=== PATIENT | male | born 1965 | race Caucasian/White ===

== ENCOUNTER 2023-11-22 07:43 | Inpatient (IN) | payer OTHER ==
[~2023-11-22] VITALS: Ht 172.7 cm; Wt 78.6 kg
[2023-11-22 07:50] VITALS: BP_SYST 148; PULSE 88; RESP 18; TEMP 97.5; O2SAT 97
[2023-11-22 08:07] LABS: BASOPHILS # (AUTO) 0.1 K/uL (0.0-0.2); EOSINOPHILS # (AUTO) 0.2 K/uL (0.0-0.4); EOSINOPHILS % (AUTO) 2.1 % (0.0-4.0); HEMATOCRIT 27.8 % (36-54); HEMOGLOBIN 9.6 g/dL (14.0-18.0); LYMPHOCYTES # (AUTO) 1.6 K/uL (1.0-5.5); LYMPHOCYTES % (AUTO) 17.8 % (20.5-51.5); MEAN CORPUSCULAR HEMOGLOBIN 30 pg (27-31); MEAN CORPUSCULAR HGB CONC 35 % (32-36); MEAN CORPUSCULAR VOLUME 85 fL (79.0-98.0); MONOCYTES # (AUTO) 0.7 K/uL (0.0-1.0); MONOCYTES % (AUTO) 8.3 % (1.7-9.3); NEUTROPHILS # (AUTO) 6.3 K/uL (1.8-7.7); NEUTROPHILS % (AUTO) 70.8 % (40.0-70.0); PLATELET COUNT (AUTO) 252 K/uL (130-430); RED BLOOD CELL COUNT(AUTO) 3.26 MIL/uL (4.2-6.2); RED CELL DISTRIBUTION WIDTH 12.5 % (9.0-15.0); WHITE BLOOD COUNT (AUTO) 8.9 K/uL (4.8-10.8)
[2023-11-22 08:46] LABS: ANION GAP 7 (5-15); CALCIUM 8.6 mg/dL (8.4-11.0); CARBON DIOXIDE 29 mmol/L (23-29); CHLORIDE 100 mmol/L (98-107); CREATININE 1.99 mg/dL (0.55-1.30); GFR AFRICAN AMERICAN 44 mL/min (>90); GLUCOSE 98 mg/dL (74-106); POTASSIUM 3.7 mmol/L (3.5-5.1); SODIUM SERUM 136 mmol/L (136-145); UREA NITROGEN, BLOOD 46 mg/dL (8-21)
[2023-11-22 08:52] LABS: GFR NON AFRICAN-AMERICAN 37 mL/min (>90)
[2023-11-22] MEDS: ASPIRIN 325 MG TABLET PO ONE (09:06)
[2023-11-22 09:27] LABS: PROTHROMBIN TIME 10.2 SECS (9.5-12.5)
[2023-11-22] MEDS: HEPARIN SODIUM,PORCINE 5,000 UNITS/ML VIAL IVP ONE (09:56)
[2023-11-22] MEDS: HEPARIN 25,000 UNITS/D5W 250ML 250 ML IV ONE (10:15)
[2023-11-22] MEDS ORDERED: HEPARIN SODIUM,PORCINE 2000 UNITS/0.4 ML BOLUS IVP PRN (11:00)
[2023-11-22] MEDS: HEPARIN 25,000 UNITS in 250 ML PREMIX IV PRN (11:30)
[2023-11-22] MEDS: METOPROLOL TARTRATE 25 MG TABLET PO ONE (11:33)
[2023-11-22] MEDS: *HEPARIN PER PHARMACY XX ONE (11:47)
[2023-11-22] MEDS ORDERED: INSULIN REGULAR, HUMAN 100 UNITS/ML, 3 ML VIAL (humuLIN R) SUBCUT PRN (12:00)
[2023-11-22] MEDS ORDERED: D5W 1,000 ML IV PRN (12:15)
[2023-11-22] MEDS ORDERED: GLUCOSE (DEXTROSE) ORAL GEL -Adults PO PRN (12:15)
[2023-11-22] MEDS ORDERED: DEXTROSE 50%-WATER 50 ML DISP.SYRIN IVP PRN (12:15)
[2023-11-22] MEDS: LACTULOSE 20 GM/30 ML UDC PO ONE (12:35)
[2023-11-22] MEDS: FUROSEMIDE 20 MG/2 ML VIAL IVP ONE (12:38)
[2023-11-22 13:06] VITALS: BP_SYST 140; PULSE 95; RESP 16; TEMP 97.3; O2SAT 97
[2023-11-22] MEDS ORDERED: FUROSEMIDE 20 MG/2 ML VIAL IVP ONE (13:15)
[2023-11-22] MEDS ORDERED: DEXTROSE 50% JECT 50 ML DISP.SYRIN IVP PRN (17:30)
[2023-11-22 17:40] VITALS: BP_SYST 144; PULSE 87
[2023-11-22] MEDS: CARVEDILOL 12.5 MG TABLET (COREG) PO ONE (17:43)
[2023-11-22 17:51] LABS: BILIRUBIN,URINE NEGATIVE (NEGATIVE); BLOOD, URINE 1+ (NEGATIVE); CLARITY/URINE CLEAR (CLEAR); COLOR,URINE YELLOW (YELLOW); GLUCOSE,URINE 3+ (NEGATIVE); KETONES,URINE TRACE (NEGATIVE); LEUKOCYTE ESTERASE ,URINE NEGATIVE (NEGATIVE); NITRITE, URINE NEGATIVE (NEGATIVE); PROTEIN URINE 2+ (NEGATIVE); UROBILINOGEN,URINE 0.2 (0.2-1.0)
[2023-11-22 18:08] LABS: BACTERIA,URINE RARE /HPF (None Seen); MUCUS,URINE None Seen /LPF (None Seen); RBC,URINE 0-3 /HPF (0-3); WBC,URINE 0-3 /HPF (0-3)
[2023-11-22] MEDS: FUROSEMIDE 20 MG/2 ML VIAL IVP SCH (21:23)
[2023-11-22] MEDS: CARVEDILOL 12.5 MG TABLET (COREG) PO SCH (21:24)
[2023-11-22] MEDS: INSULIN REGULAR, HUMAN 100 UNITS/ML, 3 ML VIAL (humuLIN R) SUBCUT PRN (22:07)
[2023-11-22 22:57] VITALS: PULSE 92; RESP 18
[2023-11-23] VITALS (7 sets, daily range): BP systolic 98–117; PULSE 60–87; RESP 17–21; TEMP 97–98.4; O2SAT 92–99
[2023-11-23] MEDS: HEPARIN SODIUM,PORCINE 3000 UNITS/0.6 ML BOLUS IVP PRN (00:17)
[2023-11-23 04:34] LABS: BASOPHILS # (AUTO) 0.1 K/uL (0.0-0.2); BASOPHILS % (AUTO) 1.2 % (0.0-2.0); EOSINOPHILS # (AUTO) 0.3 K/uL (0.0-0.4); EOSINOPHILS % (AUTO) 3.9 % (0.0-4.0); HEMATOCRIT 27.2 % (36-54); HEMOGLOBIN 9.3 g/dL (14.0-18.0); LYMPHOCYTES # (AUTO) 1.9 K/uL (1.0-5.5); LYMPHOCYTES % (AUTO) 21.8 % (20.5-51.5); MEAN CORPUSCULAR HEMOGLOBIN 29 pg (27-31); MEAN CORPUSCULAR HGB CONC 34 % (32-36); MEAN CORPUSCULAR VOLUME 86 fL (79.0-98.0); MONOCYTES # (AUTO) 0.7 K/uL (0.0-1.0); MONOCYTES % (AUTO) 8.3 % (1.7-9.3); NEUTROPHILS # (AUTO) 5.6 K/uL (1.8-7.7); NEUTROPHILS % (AUTO) 64.8 % (40.0-70.0); PLATELET COUNT (AUTO) 248 K/uL (130-430); RED BLOOD CELL COUNT(AUTO) 3.16 MIL/uL (4.2-6.2); RED CELL DISTRIBUTION WIDTH 12.3 % (9.0-15.0); WHITE BLOOD COUNT (AUTO) 8.6 K/uL (4.8-10.8)
[2023-11-23 05:06] LABS: ALBUMIN 2.2 g/dL (3.4-4.8); CREATININE 1.98 mg/dL (0.55-1.30); FREE T4 (FREE THYROXINE) 1.3 ng/dL (0.6-1.6); PHOSPHORUS 4.3 mg/dL (2.7-4.5); POTASSIUM 4.1 mmol/L (3.5-5.1); THYROID STIMULATING HORMONE 0.76 uIu/mL (0.34-4.82); TOTAL BILIRUBIN 0.2 mg/dL (0.0-1.0); TOTAL PROTEIN, SERUM 6.2 g/dL (6.4-8.3)
[2023-11-23 05:30] LABS: CREATINE KINASE, TOTAL 156 U/L (39-308)
[2023-11-23] MEDS: LOSARTAN POTASSIUM 25 MG TABLET PO SCH (09:40)
[2023-11-23] MEDS: ASPIRIN 81 MG TAB.CHEW PO SCH (09:41)
[2023-11-23] MEDS: ATORVASTATIN 20 MG TABLET PO SCH (09:41)
[2023-11-23] MEDS ORDERED: ACETAMINOPHEN 325 MG TABLET PO PRN (11:45)
[2023-11-23] MEDS: HYDROcodone/ACETAMIN 5-325 MG TAB (NORCO/ VICODIN) PO PRN (16:41)
[2023-11-23] MEDS: TEMAZEPAM 15 MG CAPSULE PO SCH (21:00)
[2023-11-23] MEDS: INSULIN GLARGINE 100 UNITS/ML, 10 ML VIAL SUBCUT SCH (21:58)
[2023-11-24 00:22] VITALS: BP_SYST 104; PULSE 68; RESP 16; TEMP 97.6; O2SAT 98
[2023-11-24 04:38] LABS: BASOPHILS # (AUTO) 0.1 K/uL (0.0-0.2); EOSINOPHILS # (AUTO) 0.4 K/uL (0.0-0.4); HEMATOCRIT 25.7 % (36-54); HEMOGLOBIN 8.7 g/dL (14.0-18.0); LYMPHOCYTES % (AUTO) 24.1 % (20.5-51.5); MEAN CORPUSCULAR HEMOGLOBIN 30 pg (27-31); MEAN CORPUSCULAR HGB CONC 34 % (32-36); MEAN CORPUSCULAR VOLUME 87 fL (79.0-98.0); MONOCYTES # (AUTO) 0.7 K/uL (0.0-1.0); MONOCYTES % (AUTO) 8.5 % (1.7-9.3); NEUTROPHILS # (AUTO) 5.2 K/uL (1.8-7.7); NEUTROPHILS % (AUTO) 61.4 % (40.0-70.0); PLATELET COUNT (AUTO) 233 K/uL (130-430); RED BLOOD CELL COUNT(AUTO) 2.94 MIL/uL (4.2-6.2); RED CELL DISTRIBUTION WIDTH 12.5 % (9.0-15.0); WHITE BLOOD COUNT (AUTO) 8.5 K/uL (4.8-10.8)
[2023-11-24 05:32] LABS: ALBUMIN 2.1 g/dL (3.4-4.8); CREATININE 1.99 mg/dL (0.55-1.30); POTASSIUM 3.9 mmol/L (3.5-5.1); TOTAL BILIRUBIN 0.2 mg/dL (0.0-1.0); TOTAL PROTEIN, SERUM 5.7 g/dL (6.4-8.3)
[2023-11-24 08:00] VITALS: BP_SYST 107; PULSE 71; RESP 20; TEMP 97.4; O2SAT 96
[2023-11-24] MEDS: FUROSEMIDE 40 MG TABLET PO SCH (09:07)
[2023-11-24 11:06] VITALS: BP_SYST 107; PULSE 78; RESP 18; TEMP 97.6; O2SAT 96
[2023-11-24 16:05] VITALS: BP_SYST 108; PULSE 78; RESP 18; TEMP 97.6; O2SAT 96
[2023-11-24] MEDS: EPOETIN ALFA-EPBX 3,000 UNITS/ML VIAL SUBCUT ONE (18:46)
[2023-11-24 20:00] VITALS: BP_SYST 101; PULSE 71; RESP 18; TEMP 97.8; O2SAT 95
[2023-11-25] VITALS: BP_SYST 98; PULSE 64; RESP 18; TEMP 97.4; O2SAT 98
[2023-11-25 04:58] LABS: BASOPHILS # (AUTO) 0.1 K/uL (0.0-0.2); EOSINOPHILS # (AUTO) 0.4 K/uL (0.0-0.4); EOSINOPHILS % (AUTO) 3.9 % (0.0-4.0); HEMATOCRIT 27.9 % (36-54); HEMOGLOBIN 9.4 g/dL (14.0-18.0); LYMPHOCYTES % (AUTO) 28.8 % (20.5-51.5); MEAN CORPUSCULAR HEMOGLOBIN 29 pg (27-31); MEAN CORPUSCULAR HGB CONC 34 % (32-36); MEAN CORPUSCULAR VOLUME 88 fL (79.0-98.0); MONOCYTES # (AUTO) 0.8 K/uL (0.0-1.0); MONOCYTES % (AUTO) 8.1 % (1.7-9.3); NEUTROPHILS % (AUTO) 58.2 % (40.0-70.0); PLATELET COUNT (AUTO) 289 K/uL (130-430); RED BLOOD CELL COUNT(AUTO) 3.19 MIL/uL (4.2-6.2); RED CELL DISTRIBUTION WIDTH 12.7 % (9.0-15.0); WHITE BLOOD COUNT (AUTO) 10.4 K/uL (4.8-10.8)
[2023-11-25 05:53] LABS: ALBUMIN 2.3 g/dL (3.4-4.8); CALCIUM 8.1 mg/dL (8.4-11.0); CREATININE 2.02 mg/dL (0.55-1.30); PHOSPHORUS 5.5 mg/dL (2.7-4.5); POTASSIUM 3.7 mmol/L (3.5-5.1); TOTAL BILIRUBIN 0.3 mg/dL (0.0-1.0)
[2023-11-25 08:37] VITALS: BP_SYST 129; PULSE 69; RESP 19; TEMP 96.4; O2SAT 95
[2023-11-25 09:00] VITALS: O2SAT 96
[2023-11-25] MEDS: NEPHROVITE, (FOLIC ACID/VITAMIN B COMP W-C 1 TAB) PO SCH (09:09)
[2023-11-25 10:56] LABS: TOTAL IRON BIND. CAPACITY 252 ug/dL (250-450)
[2023-11-25] MEDS ORDERED: COR12.5 PO (12:45)
[2023-11-25] MEDS ORDERED: LIP20 PO (12:45)
[2023-11-25] MEDS ORDERED: ASA81 PO (12:45)
[2023-11-25] MEDS ORDERED: LOSA-412 PO (12:45)
[2023-11-25] MEDS ORDERED: INSU100V9 SUBCUT (12:45)
[2023-11-25] MEDS ORDERED: GLIP5TAB23 PO (12:45)
[2023-11-25] MEDS ORDERED: FURO-149 PO (12:45)
[2023-11-25] MEDS ORDERED: NEPH PO (12:45)
[2023-11-25 13:06] VITALS: BP_SYST 121; PULSE 80; RESP 16; TEMP 98.7; O2SAT 98
[2023-11-25 14:22] VITALS: BP_SYST 121; PULSE 80; RESP 16; TEMP 98.7; O2SAT 95
[2023-11-26] MEDS ORDERED: EPOETIN ALFA-EPBX 3,000 UNITS/ML VIAL SUBCUT SCH (17:00)
== END 2023-11-25 15:30 | disposition home or self-care (01) | DRG 280 ==
LOC: SED 07:43 → STU 10:10
PROVIDERS: ADMIT Internal Medicine; ATTEND Internal Medicine
DX: I21.4 Non-ST elevation (NSTEMI) myocardial infarction (principal); I50.41 Acute combined systolic (congestive) and diastolic (congestive) heart failure; I13.0 Hypertensive heart and chronic kidney disease with heart failure and stage 1 through stage 4 chronic kidney disease, or unspecified chronic kidney disease; N18.4 Chronic kidney disease, stage 4 (severe); I42.9 Cardiomyopathy, unspecified; Z20.822 Contact with and (suspected) exposure to COVID-19; I24.89 Other forms of acute ischemic heart disease; E11.22 Type 2 diabetes mellitus with diabetic chronic kidney disease; E11.51 Type 2 diabetes mellitus with diabetic peripheral angiopathy without gangrene; I25.10 Atherosclerotic heart disease of native coronary artery without angina pectoris; D64.9 Anemia, unspecified; E11.40 Type 2 diabetes mellitus with diabetic neuropathy, unspecified; I25.2 Old myocardial infarction; Z79.4 Long term (current) use of insulin; Z87.891 Personal history of nicotine dependence; Z89.419 Acquired absence of unspecified great toe
CPT/HCPCS: 36415; 71045; 72100; 76705; 76770; 80048; 80053; 80061; 81000; 81001; 81015; 82550; 82948; 83037; 83540; 83550; 83690; 83735; 83880; 84100; 84439; 84443; 84484; 85025; 85610; 85730; 93005; 93306; 99291; G0378; J1644; J1815; J1940; Q5106

== ENCOUNTER 2023-11-27 11:19 | Inpatient (IN) | payer OTHER ==
[~2023-11-27] VITALS: Ht 172.7 cm; Wt 77.6 kg
[~2023-11-27 11:19] MED LIST: ASA81 PO; COR12.5 PO; FURO-149 PO; GLIP5TAB23 PO; INSU100V9 SUBCUT; LIP20 PO; LOSA-412 PO; NEPH PO
[2023-11-27 11:20] VITALS: BP_SYST 155; PULSE 88; RESP 22; TEMP 97; O2SAT 90
[2023-11-27] MEDS: NITROGLYCERIN 0.4 MG TAB.SUBL SL ONE (11:42)
[2023-11-27 11:59] LABS: BASOPHILS # (AUTO) 0.1 K/uL (0.0-0.2); EOSINOPHILS # (AUTO) 0.1 K/uL (0.0-0.4); HEMOGLOBIN 10.1 g/dL (14.0-18.0); LYMPHOCYTES # (AUTO) 1.4 K/uL (1.0-5.5); MEAN CORPUSCULAR HGB CONC 33 % (32-36); MONOCYTES # (AUTO) 0.6 K/uL (0.0-1.0)
[2023-11-27 12:01] LABS: BASOPHILS % (AUTO) 0.5 % (0.0-2.0); EOSINOPHILS % (AUTO) 1.1 % (0.0-4.0); HEMATOCRIT 30.7 % (36-54); LYMPHOCYTES % (AUTO) 13.9 % (20.5-51.5); MEAN CORPUSCULAR HEMOGLOBIN 30 pg (27-31); MEAN CORPUSCULAR VOLUME 90 fL (79.0-98.0); MONOCYTES % (AUTO) 6.1 % (1.7-9.3); NEUTROPHILS # (AUTO) 8.1 K/uL (1.8-7.7); NEUTROPHILS % (AUTO) 78.4 % (40.0-70.0); PLATELET COUNT (AUTO) 290 K/uL (130-430); RED CELL DISTRIBUTION WIDTH 12.7 % (9.0-15.0); WHITE BLOOD COUNT (AUTO) 10.3 K/uL (4.8-10.8)
[2023-11-27 12:21] LABS: PROTHROMBIN TIME 10.2 SECS (9.5-12.5)
[2023-11-27 12:26] LABS: ALANINE AMINOTRANSFERASE 24 U/L (12-78); ALBUMIN 2.9 g/dL (3.4-4.8); ANION GAP 9 (5-15); ASPARTATE AMINOTRANSFERASE 30 U/L (10-37); BILIRUBIN,DIRECT 0.1 mg/dL (0.0-0.3); CALCIUM 8.4 mg/dL (8.4-11.0); CARBON DIOXIDE 27 mmol/L (23-29); CHLORIDE 103 mmol/L (98-107); CREATINE KINASE, TOTAL 123 U/L (39-308); CREATININE 2.09 mg/dL (0.55-1.30); GFR AFRICAN AMERICAN 42 mL/min (>90); GFR NON AFRICAN-AMERICAN 35 mL/min (>90); GLUCOSE 358 mg/dL (74-106); POTASSIUM 5.4 mmol/L (3.5-5.1); SODIUM SERUM 139 mmol/L (136-145); TOTAL BILIRUBIN 0.4 mg/dL (0.0-1.0); TOTAL PROTEIN, SERUM 7.2 g/dL (6.4-8.3); UREA NITROGEN, BLOOD 57 mg/dL (8-21)
[2023-11-27] MEDS: SODIUM POLYSTYRENE SULFONATE 15 GM/60 ML UDBTL PO ONE (13:26)
[2023-11-27] MEDS: NS 500 ML IV ONE (13:26)
[2023-11-27] MEDS ORDERED: ATORVASTATIN 20 MG TABLET PO SCH (14:30)
[2023-11-27] MEDS ORDERED: FUROSEMIDE 20 MG/2 ML VIAL IVP ONE (14:45)
[2023-11-27] MEDS ORDERED: IPRATROPIUM/ALBUTEROL SULFATE 3 ML AMPUL.NEB (DUONEB) ONE (15:04)
[2023-11-27] MEDS: FUROSEMIDE 40 MG/4 ML VIAL IVP ONE (16:13)
[2023-11-27] MEDS: amLODIPine BESYLATE 5 MG TABLET PO ONE (16:13)
[2023-11-27] MEDS: LORazepam 1 MG TABLET PO ONE (16:14)
[2023-11-27] MEDS: ATORVASTATIN 20 MG TABLET PO SCH (18:44)
[2023-11-27] MEDS: ATORVASTATIN 20 MG TABLET PO ONE (18:46)
[2023-11-27] MEDS: DOCUSATE SODIUM 100 MG CAPSULE PO SCH (18:50)
[2023-11-27] MEDS: ASPIRIN 81 MG TAB.CHEW PO SCH (18:50)
[2023-11-27 20:56] LABS: BILIRUBIN,URINE NEGATIVE (NEGATIVE); BLOOD, URINE 1+ (NEGATIVE); CLARITY/URINE CLEAR (CLEAR); COLOR,URINE YELLOW (YELLOW); GLUCOSE,URINE 3+ (NEGATIVE); KETONES,URINE NEGATIVE (NEGATIVE); LEUKOCYTE ESTERASE ,URINE NEGATIVE (NEGATIVE); NITRITE, URINE NEGATIVE (NEGATIVE); PROTEIN URINE 2+ (NEGATIVE); UROBILINOGEN,URINE 0.2 (0.2-1.0)
[2023-11-27 21:03] VITALS: BP_SYST 130; PULSE 84; RESP 18; TEMP 97.6
[2023-11-27 21:05] LABS: RBC,URINE NONE SEEN /HPF (0-3)
[2023-11-27 21:06] LABS: BACTERIA,URINE None Seen /HPF (None Seen); MUCUS,URINE None Seen /LPF (None Seen); WBC,URINE 0-3 /HPF (0-3)
[2023-11-27] MEDS: POLYETHYLENE GLYCOL 3350, 17 GM/ POWD.PACK PO SCH (21:35)
[2023-11-27] MEDS: ZOLPIDEM TARTRATE 5 MG TABLET PO ONE (21:35)
[2023-11-27] MEDS: CARVEDILOL 12.5 MG TABLET (COREG) PO SCH (21:36)
[2023-11-27 21:40] VITALS: O2SAT 99
[2023-11-28 00:32] VITALS: BP_SYST 129; PULSE 80; RESP 20; TEMP 98.1
[2023-11-28] MEDS: INSULIN LISPRO SLIDING SCALE 100 UNITS/ML, 3 ML VIAL (humaLOG) SUBCUT PRN (06:08)
[2023-11-28 08:00] VITALS: BP_SYST 136; RESP 18; TEMP 97; O2SAT 100
[2023-11-28 08:09] LABS: CALCIUM 8.4 mg/dL (8.4-11.0); CREATININE 1.97 mg/dL (0.55-1.30); POTASSIUM 4.9 mmol/L (3.5-5.1)
[2023-11-28 08:16] LABS: BASOPHILS # (AUTO) 0.1 K/uL (0.0-0.2); EOSINOPHILS # (AUTO) 0.1 K/uL (0.0-0.4); HEMOGLOBIN 9.9 g/dL (14.0-18.0); LYMPHOCYTES # (AUTO) 1.2 K/uL (1.0-5.5)
[2023-11-28 08:20] LABS: BASOPHILS % (AUTO) 0.9 % (0.0-2.0); HEMATOCRIT 29.7 % (36-54); LYMPHOCYTES % (AUTO) 11.1 % (20.5-51.5); MEAN CORPUSCULAR HEMOGLOBIN 30 pg (27-31); MEAN CORPUSCULAR HGB CONC 33 % (32-36); MEAN CORPUSCULAR VOLUME 89 fL (79.0-98.0); MONOCYTES # (AUTO) 0.7 K/uL (0.0-1.0); MONOCYTES % (AUTO) 6.4 % (1.7-9.3); NEUTROPHILS # (AUTO) 8.6 K/uL (1.8-7.7); NEUTROPHILS % (AUTO) 80.6 % (40.0-70.0); PLATELET COUNT (AUTO) 290 K/uL (130-430); RED BLOOD CELL COUNT(AUTO) 3.33 MIL/uL (4.2-6.2); RED CELL DISTRIBUTION WIDTH 12.8 % (9.0-15.0); WHITE BLOOD COUNT (AUTO) 10.6 K/uL (4.8-10.8)
[2023-11-28] MEDS: NEPHROVITE, (FOLIC ACID/VITAMIN B COMP W-C 1 TAB) PO SCH (08:38)
[2023-11-28] MEDS: FUROSEMIDE 20 MG TABLET PO ONE (10:26)
[2023-11-28 12:00] VITALS: BP_SYST 135; PULSE 82; RESP 19; TEMP 97.2; O2SAT 96
[2023-11-28 16:00] VITALS: BP_SYST 138; PULSE 84; RESP 18; TEMP 97.1; O2SAT 95
[2023-11-28 20:02] VITALS: BP_SYST 138; PULSE 81; RESP 20; TEMP 97; O2SAT 98
[2023-11-28] MEDS: FUROSEMIDE 20 MG TABLET PO SCH (21:29)
[2023-11-28] MEDS: INSULIN GLARGINE 100 UNITS/ML, 10 ML VIAL SUBCUT SCH (21:32)
[2023-11-28] MEDS: POLYETHYLENE GLYCOL 3350, 17 GM/ POWD.PACK PO SCH (21:34)
[2023-11-29] VITALS (10 sets, daily range): BP systolic 108–148; PULSE 69–120; RESP 18–20; TEMP 97.3–98.1; O2SAT 69–100
[2023-11-29 07:09] LABS: BASOPHILS # (AUTO) 0.1 K/uL (0.0-0.2); EOSINOPHILS # (AUTO) 0.1 K/uL (0.0-0.4); EOSINOPHILS % (AUTO) 1.4 % (0.0-4.0); HEMATOCRIT 28.2 % (36-54); HEMOGLOBIN 9.4 g/dL (14.0-18.0); LYMPHOCYTES # (AUTO) 1.5 K/uL (1.0-5.5); MEAN CORPUSCULAR HEMOGLOBIN 30 pg (27-31); MEAN CORPUSCULAR HGB CONC 33 % (32-36); MEAN CORPUSCULAR VOLUME 90 fL (79.0-98.0); MONOCYTES # (AUTO) 0.6 K/uL (0.0-1.0); MONOCYTES % (AUTO) 5.5 % (1.7-9.3); NEUTROPHILS # (AUTO) 8.1 K/uL (1.8-7.7); NEUTROPHILS % (AUTO) 78.1 % (40.0-70.0); PLATELET COUNT (AUTO) 282 K/uL (130-430); RED BLOOD CELL COUNT(AUTO) 3.15 MIL/uL (4.2-6.2); RED CELL DISTRIBUTION WIDTH 12.8 % (9.0-15.0); WHITE BLOOD COUNT (AUTO) 10.4 K/uL (4.8-10.8)
[2023-11-29 07:53] LABS: ALBUMIN 2.6 g/dL (3.4-4.8); CALCIUM 8.2 mg/dL (8.4-11.0); CREATININE 1.99 mg/dL (0.55-1.30); POTASSIUM 5.2 mmol/L (3.5-5.1); TOTAL BILIRUBIN 0.4 mg/dL (0.0-1.0); TOTAL PROTEIN, SERUM 6.5 g/dL (6.4-8.3)
[2023-11-29] MEDS: FUROSEMIDE 20 MG/2 ML VIAL IVP SCH (09:21)
[2023-11-29] MEDS: cefTRIAXone 1 GM in D5W 50 ML IV SCH (09:27)
[2023-11-29] MEDS: IPRATROPIUM/ALBUTEROL SULFATE 3 ML AMPUL.NEB (DUONEB) INH SCH (11:31)
[2023-11-29] MEDS: SODIUM ZIRCONIUM CYCLOSILICATE 10 GM POWD.PACK PO ONE (14:03)
[2023-11-29] MEDS: SODIUM PHOSPHATE,MONO-DIBASIC 133 ML ENEMA RC ONE (16:19)
[2023-11-29] MEDS: POLYETHYLENE GLYCOL 3350, 17 GM/ POWD.PACK PO ONE (16:19)
[2023-11-29] MEDS: BUDESONIDE 0.5 MG/2 ML AMPUL.NEB INH SCH (20:26)
[2023-11-30] VITALS (10 sets, daily range): BP systolic 112–138; PULSE 67–81; RESP 16–18; TEMP 97–98.8; O2SAT 93–99
[2023-11-30 09:09] LABS: BASOPHILS # (AUTO) 0.1 K/uL (0.0-0.2); HEMOGLOBIN 10.3 g/dL (14.0-18.0); MEAN CORPUSCULAR VOLUME 89 fL (79.0-98.0)
[2023-11-30 09:13] LABS: BASOPHILS % (AUTO) 0.9 % (0.0-2.0); EOSINOPHILS # (AUTO) 0.1 K/uL (0.0-0.4); EOSINOPHILS % (AUTO) 1.5 % (0.0-4.0); HEMATOCRIT 30.7 % (36-54); LYMPHOCYTES # (AUTO) 1.9 K/uL (1.0-5.5); LYMPHOCYTES % (AUTO) 19.7 % (20.5-51.5); MEAN CORPUSCULAR HEMOGLOBIN 30 pg (27-31); MEAN CORPUSCULAR HGB CONC 34 % (32-36); MONOCYTES # (AUTO) 0.6 K/uL (0.0-1.0); MONOCYTES % (AUTO) 6.4 % (1.7-9.3); NEUTROPHILS # (AUTO) 6.9 K/uL (1.8-7.7); NEUTROPHILS % (AUTO) 71.5 % (40.0-70.0); PLATELET COUNT (AUTO) 307 K/uL (130-430); RED BLOOD CELL COUNT(AUTO) 3.46 MIL/uL (4.2-6.2); RED CELL DISTRIBUTION WIDTH 13.2 % (9.0-15.0); WHITE BLOOD COUNT (AUTO) 9.7 K/uL (4.8-10.8)
[2023-11-30 09:28] LABS: ALBUMIN 2.6 g/dL (3.4-4.8); CALCIUM 8.4 mg/dL (8.4-11.0); POTASSIUM 4.3 mmol/L (3.5-5.1); TOTAL BILIRUBIN 0.4 mg/dL (0.0-1.0); TOTAL PROTEIN, SERUM 6.6 g/dL (6.4-8.3)
[2023-11-30] MEDS: INSULIN LISPRO SLIDING SCALE 100 UNITS/ML, 3 ML VIAL (humaLOG) SUBCUT PRN (16:42)
[2023-11-30] MEDS: INSULIN GLARGINE 100 UNITS/ML, 10 ML VIAL SUBCUT SCH (22:06)
[2023-12-01] VITALS (8 sets, daily range): BP systolic 112–130; PULSE 67–79; RESP 16–18; TEMP 96.7–98.2; O2SAT 95–98
[2023-12-01] MEDS: SODIUM PHOSPHATE,MONO-DIBASIC 133 ML ENEMA RC ONE (00:23)
[2023-12-01] MEDS ORDERED: BENZONATATE 100 MG CAPSULE (TESSALON) PO PRN (07:45)
[2023-12-01 11:00] LABS: BASOPHILS # (AUTO) 0.1 K/uL (0.0-0.2); BASOPHILS % (AUTO) 1.2 % (0.0-2.0); EOSINOPHILS # (AUTO) 0.2 K/uL (0.0-0.4); EOSINOPHILS % (AUTO) 2.2 % (0.0-4.0); HEMATOCRIT 29.8 % (36-54); LYMPHOCYTES # (AUTO) 1.4 K/uL (1.0-5.5); LYMPHOCYTES % (AUTO) 15.9 % (20.5-51.5); MEAN CORPUSCULAR HEMOGLOBIN 30 pg (27-31); MEAN CORPUSCULAR HGB CONC 33 % (32-36); MEAN CORPUSCULAR VOLUME 88 fL (79.0-98.0); MONOCYTES # (AUTO) 0.6 K/uL (0.0-1.0); NEUTROPHILS # (AUTO) 6.3 K/uL (1.8-7.7); NEUTROPHILS % (AUTO) 73.7 % (40.0-70.0); PLATELET COUNT (AUTO) 288 K/uL (130-430); RED BLOOD CELL COUNT(AUTO) 3.38 MIL/uL (4.2-6.2); RED CELL DISTRIBUTION WIDTH 13.1 % (9.0-15.0); WHITE BLOOD COUNT (AUTO) 8.6 K/uL (4.8-10.8)
[2023-12-01 11:11] LABS: ALBUMIN 2.6 g/dL (3.4-4.8); CALCIUM 8.2 mg/dL (8.4-11.0); CREATININE 1.85 mg/dL (0.55-1.30); POTASSIUM 4.1 mmol/L (3.5-5.1); TOTAL BILIRUBIN 0.3 mg/dL (0.0-1.0); TOTAL PROTEIN, SERUM 6.5 g/dL (6.4-8.3)
[2023-12-01] MEDS ORDERED: POLY17PO4 PO (12:12)
[2023-12-01] MEDS ORDERED: FURO-150 PO (12:12)
[2023-12-01] MEDS ORDERED: INSU100V9 SUBCUT (12:12)
[2023-12-01] MEDS ORDERED: LIP20 PO (12:12)
[2023-12-01] MEDS ORDERED: ASA81 PO (12:12)
[2023-12-01] MEDS ORDERED: AMLO5TAB4 PO (12:12)
[2023-12-01] MEDS ORDERED: COR12.5 PO (12:12)
[2023-12-01] MEDS ORDERED: EMPA10TA PO (12:12)
== END 2023-12-01 15:10 | disposition home or self-care (01) | DRG 291 ==
LOC: SED 11:19 → STU 13:29
PROVIDERS: ADMIT Family Medicine; ATTEND Family Medicine
DX: I13.0 Hypertensive heart and chronic kidney disease with heart failure and stage 1 through stage 4 chronic kidney disease, or unspecified chronic kidney disease (principal); I50.23 Acute on chronic systolic (congestive) heart failure; N17.9 Acute kidney failure, unspecified; N18.4 Chronic kidney disease, stage 4 (severe); E87.5 Hyperkalemia; E11.22 Type 2 diabetes mellitus with diabetic chronic kidney disease; K59.00 Constipation, unspecified; E11.65 Type 2 diabetes mellitus with hyperglycemia; Z79.82 Long term (current) use of aspirin; Z79.4 Long term (current) use of insulin; Z79.899 Other long term (current) drug therapy; Z91.148 Patient's other noncompliance with medication regimen for other reason; Z89.429 Acquired absence of other toe(s), unspecified side; Z87.891 Personal history of nicotine dependence; Z79.84 Long term (current) use of oral hypoglycemic drugs
CPT/HCPCS: 36415; 71045; 76770; 80048; 80053; 80076; 81000; 81001; 81015; 82550; 82948; 83735; 83880; 84484; 85025; 85610; 85730; 87081; 93005; 94640; 94760; 99285; G0378; J0696; J1940; J7060; J7626